=== PATIENT | female | born 1950 | race Caucasian/White ===

== ENCOUNTER 2018-05-27 09:34 | Outpatient (CLI) | payer OTHER ==
--- NOTE | 2018-05-30 18:09 | MMO ---
SCREENING MAMMOGRAPHY 05/27/18 COMPARISON: 12/07/16 HISTORY: Screening mammogram. FINDINGS: The patient's mammogram is interpreted with the assistance of computer aided detection. The breasts a re primarily fatty replaced. No dominant mass or architectural distortion. No concerning microcalcifi cation. Benign calcification noted on the right. IMPRESSION: BIRADS 2: Benign Finding(s) Routine annual screening mammography (for women over age 40). POS: [facility]
== END 2018-05-27 09:35 | disposition home or self-care (01) ==
LOC: SCSMAMMO 09:34 → EDBD 10:00
PROVIDERS: ATTEND Internal Medicine
DX: Z12.31 Encounter for screening mammogram for malignant neoplasm of breast (principal)
CPT/HCPCS: 77067

== ENCOUNTER 2018-06-10 10:43 | Outpatient (CLI) | payer OTHER ==
--- NOTE | 2018-06-10 11:57 | RAD ---
TWO VIEWS LEFT KNEE: History: Osteoarthritis of multiple joints. FINDINGS: Two views of the left knee shows moderate medial femorotibial joint space narrowing and osteophyte fo rmation consistent with osteoarthritis. There is no evidence of fracture or dislocation. IMPRESSION: Moderate left knee osteoarthritis. POS: [facility]
--- NOTE | 2018-06-10 11:58 | RAD ---
TWO VIEWS RIGHT KNEE: Comparison: None. History: Osteoarthritis of multiple joints. FINDINGS: Two views of the right knee shows moderate medial femorotibial joint space narrowing and osteophyte f ormation consistent with osteoarthritis. There is no evidence of fracture or dislocation. No knee eff usion is seen. IMPRESSION: Moderate right knee osteoarthritis. POS: [facility]
== END 2018-06-10 10:44 | disposition home or self-care (01) ==
LOC: BICRAD 10:43
PROVIDERS: ATTEND Internal Medicine
DX: M15.9 Polyosteoarthritis, unspecified (principal)

== ENCOUNTER 2018-12-25 08:59 | Outpatient (CLI) | payer OTHER, MEDICARE ==
--- NOTE | 2018-12-25 09:29 | RAD ---
THREE VIEWS OF THE LEFT WRIST: HISTORY: Left wrist pain. The patient fell 1 years ago. FINDINGS: Three views of the left wrist show no evidence of acute fracture or dislocation. There is remodeling of the distal radius which may represent a remote healed fracture. There is moderate to severe dege nerative change in the 1st CMC joint. IMPRESSION: 1. No evidence of acute osseous abnormality. 2. 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 POS: [facility]
== END 2018-12-25 09:00 | disposition home or self-care (01) ==
LOC: BICRAD 08:59
PROVIDERS: ATTEND Internal Medicine
DX: M25.532 Pain in left wrist (principal); M18.12 Unilateral primary osteoarthritis of first carpometacarpal joint, left hand

== ENCOUNTER 2019-12-31 08:37 | Outpatient (CLI) | payer MEDICARE, MEDICAID ==
--- NOTE | 2019-12-31 10:52 | MMO ---
Bilateral MAMMO Bilat Screen [facility]. CLINICAL HISTORY: Patient is 69 years old and is seen for screening. VIEWS: The views performed were: bilateral craniocaudal with tomosynthesis and bilateral mediolateral oblique with tomosynthesis. FILMS COMPARED: The present examination has been compared to prior imaging studies performed at [facility] on 05/27/2018, and at [facility] on 12/07/2016. This study has been interpreted with the assistance of computer-aided detection. MAMMOGRAM FINDINGS: The breasts are almost entirely fat. Benign calcifications are noted bilaterally. There are no suspicious masses, suspicious calcifications, or new areas of architectural distortion. IMPRESSION: THERE IS NO MAMMOGRAPHIC EVIDENCE OF MALIGNANCY. A ROUTINE FOLLOW-UP MAMMOGRAM IN 1 YEAR IS RECOMMENDED. THE RESULTS OF THIS EXAM WERE SENT TO THE PATIENT. ACR BI-RADS Category 2 - Benign finding MAMMOGRAPHY NOTE: 1. A negative mammogram report should not delay a biopsy if a dominant of clinically suspicious mass is present. 2. Approximately 10% to 15% of breast cancers are not detected by mammography. 3. Adenosis and dense breasts may obscure an underlying neoplasm. Reported by: ELVIRA CLARKE MD Electonically Signed: [id number]
--- NOTE | 2019-12-31 11:25 | BD ---
BONE DENSITOMETRY USING DEXA: Date: 12/31/2019 HISTORY: Postmenopausal screening for osteoporosis. FINDINGS: Lumbar Spine: BMD (g/cm2) L1 0.922 T-Score: -0.6 Z-Score: 1.1 L2 0.986 T-Score: -1.4 Z-Score: 1.6 L3 0.898 T-Score: -1.7 Z-Score: 0.4 L4 0.924 T-Score: -1.2 Z-Score: 0.9 L1-L4 0.931 T-Score: -1.1 Z-Score: 0.9 Femoral Neck: 0.705 T-Score: -1.3 Z-Score: 0.4 Total Femur: 1.000 T-Score: 0.5 Z-Score: 1.9 The 10 year fracture risk for a major osteoporotic fracture is 17% and for a hip fracture is 2%. IMPRESSION: Osteopenia. POS: [facility]
== END 2019-12-31 08:38 | disposition home or self-care (01) ==
LOC: BICMAMMO 08:37
PROVIDERS: ATTEND Family Medicine
DX: Z12.31 Encounter for screening mammogram for malignant neoplasm of breast (principal); Z13.820 Encounter for screening for osteoporosis; M85.89 Other specified disorders of bone density and structure, multiple sites
CPT/HCPCS: 77063; 77067; 77080

== ENCOUNTER 2020-07-05 06:51 | Outpatient (CLI) | payer MEDICARE, MEDICAID ==
--- NOTE | 2020-07-05 08:09 | RAD ---
4 views of the right knee: 07/05/2020 COMPARISON: None available HISTORY: Arthritis, right knee pain FINDINGS: There is moderate medial compartment narrowing with osteophyte formation of the medial femo ral condyle and medial tibial plateau. No knee joint effusion, displaced fracture, or evidence of dislocation is seen. IMPRESSION: Medial compartment degenerative joint disease.
--- NOTE | 2020-07-05 08:32 | ULT ---
Hepatic Doppler ultrasound: 07/05/2020 COMPARISON: None HISTORY: Elevated liver function tests TECHNIQUE: Multiplanar grayscale sonographic imaging of the abdomen provided. The hepatic and splenic vasculature is assessed with Doppler interrogation including color flow and spectral analysis FINDINGS: Imaged portions of the pancreas appear unremarkable. Imaged portions of the aorta and IVC appear grossly unremarkable. The left hepatic vein and left port al vein, the middle hepatic vein, and the right hepatic and right portal vein appear patent. The main portal vein is patent and demonstrates normal directional flow. Hepatic artery is patent and dem onstrates a normal arterial waveform. The patient is status post cholecystectomy. The common bile duct is normal in caliber measuring 6-7 m m. A solid hypoechoic lesion is suspected within the right lobe of the liver measuring 2.0 x 1.6 x 1.4 c m. The spleen is normal in size, measuring 12.7 cm. Splenic artery and splenic vein are patent and demonstrate appropriate waveforms and flow direction. IMPRESSION: Patent hepatic and splenic vasculature. Solid appearing lesion within the right lobe of the liver for which MRI of the abdomen with and witho ut contrast using hepatic mass protocol advised. CODE T
== END 2020-07-05 06:52 | disposition home or self-care (01) ==
LOC: BICULT 06:51
PROVIDERS: ATTEND Family Medicine
DX: M25.561 Pain in right knee (principal); R74.8 Abnormal levels of other serum enzymes; M17.11 Unilateral primary osteoarthritis, right knee
CPT/HCPCS: 76705

== ENCOUNTER 2020-08-31 07:34 | Outpatient (CLI) | payer MEDICARE, MEDICAID ==
--- NOTE | 2020-08-31 10:41 | MRI ---
MRI ABDOMEN WITH AND WITHOUT CONTRAST: INDICATION: Follow-up liver lesion. COMPARISON: Hepatic ultrasound dated 07/05/2020. FINDINGS: Likely corresponding to the isoechoic 2.0 x 1.6 cm mass lesion within the anterior liver is a T2 hype rintense 2.1 cm, T1 hypointense enhancing lesion within the the left hepatic lobe. The lesion demonstrates peripheral enhancement with progressive central fill-in on the delayed phase images. No additional focal hepatic lesion is evident. There is splenomegaly measuring up to 15.5 cm. There are very tiny renal cysts bilaterally within both kidneys. Adrenal glands and pancreas appear within normal limits. No free fluid is identified. No acute osseous abnormality is evident. The liver measures 21.7 cm in length. IMPRESSION: 1. Likely corresponding to the isoechoic lesion within the anterior liver on the comparison ultrasoun d is a T2 hyperintense, peripherally enhancing lesion with central fill-in. Findings may reflect a slightly atypical hemangioma or possibly a small FNH lesion. As a conservative measure would recommen d a follow-up MRI of the abdomen in 6 months to document stability. 2. Mild hepatosplenomegaly. 3. Small bilateral renal cysts. Transcribed Date/Time: 08/31/2020 12:21 PM
[2020-08-31] MEDS ORDERED: Magnevist 469MG/ML 20 ML VIAL ONE (11:49)
== END 2020-08-31 07:35 | disposition home or self-care (01) ==
LOC: BICMRI 07:34
PROVIDERS: ATTEND Family Medicine
DX: R93.2 Abnormal findings on diagnostic imaging of liver and biliary tract (principal); R16.2 Hepatomegaly with splenomegaly, not elsewhere classified; N28.1 Cyst of kidney, acquired
CPT/HCPCS: 74183; 82565; A9579

== ENCOUNTER 2020-11-10 08:34 | Outpatient (CLI) | payer MEDICARE, MEDICAID | END 2020-11-10 08:35 | disposition home or self-care (01) | LOC: BICRAD 08:34 | PROVIDERS: ATTEND Family Medicine | DX: M54.5 Low back pain (principal) | CPT/HCPCS: 72100 ==

== ENCOUNTER 2022-03-12 08:20 | Outpatient (CLI) | payer MEDICARE, MEDICAID | END 2022-03-12 08:21 | disposition home or self-care (01) | LOC: BICMAMMO 08:20 | PROVIDERS: ATTEND Family Medicine | DX: Z12.31 Encounter for screening mammogram for malignant neoplasm of breast (principal) | CPT/HCPCS: 77063; 77067 ==

== ENCOUNTER 2022-04-03 08:16 | Outpatient (CLI) | payer MEDICARE, MEDICAID | END 2022-04-03 08:17 | disposition home or self-care (01) | LOC: BICRAD 08:16 | PROVIDERS: ATTEND Family Medicine | DX: M25.562 Pain in left knee (principal); M17.12 Unilateral primary osteoarthritis, left knee ==

== ENCOUNTER 2022-06-16 10:20 | Emergency (ER) | payer OTHER ==
[2022-06-16] MEDS ORDERED: Acetaminophen 500 MG TAB ONE (11:40)
[2022-06-16] MEDS ORDERED: Ketorolac Tromethamine 30 MG/ML VIAL ONE (11:40)
== END 2022-06-16 11:56 | disposition home or self-care (01) ==
LOC: ERS 10:20
DX: K08.89 Other specified disorders of teeth and supporting structures (principal); E78.00 Pure hypercholesterolemia, unspecified; I10 Essential (primary) hypertension; Z87.891 Personal history of nicotine dependence
CPT/HCPCS: 96372; 99283; J1885

== ENCOUNTER 2025-02-27 13:00 | Emergency (ER) | payer MEDICAID, MEDICARE, OTHER ==
[~2025-02-27 13:00] MED LIST: Iopamidol-370 76% 500 ML MDV (1 ML CHARGE) ONE
[2025-02-27] MEDS ORDERED: Ondansetron PF 4 MG/2 ML Vial ONE (13:25)
[2025-02-27 14:28] LABS: ALT (SGPT) 36 U/L (Less than 34); AST (SGOT) 67 U/L (11-34); Albumin 3.3 g/dL (3.1-4.5); Alkaline Phosphatase 85 U/L (40-110); Anion Gap 17 mmol/L (10-20); BUN (Urea Nitrogen) 18 mg/dL (9.8-20.1); Bilirubin, Total 1.0 mg/dL (0.3-1.2); Calc. Creatinine Clearance 0 mL/min (70-130); Calcium 10.4 mg/dL (7.8-10.44); Carbon Dioxide 18 mmol/L (23-31); Chloride 108 mmol/L (98-107); Globulin 4.3 g/dL (2.4-3.5); Glucose 220 mg/dL (83-110); Lipase 24 U/L (8-78); Potassium 3.8 mmol/L (3.5-5.1); Sodium 139 mmol/L (136-145)
[2025-02-27 14:29] LABS: #Basophils 0.03 10x3/uL (0.0-0.2); #Eosinophils 0.08 10x3/uL (0.0-0.7); #Monocytes 0.19 10x3/uL (0.11-0.59); #Neutrophils 3.70 10x3/uL (1.40-6.50); %Basophils 0.7 % (0.0-1.0); %Eosinophils 1.8 % (0.0-10.0); %Lymphocytes 11.3 % (21.0-51.0); %Monocytes 4.2 % (0.0-10.0); %Neutrophils 81.6 % (42.0-75.0); Hematocrit 27.2 % (36.0-47.0); Hemoglobin 7.6 g/dL (12.0-16.0); Mean Corpuscular Hemoglobin 16.6 pg (27.0-31.0); Mean Corpuscular Volume 59.4 fL (78.0-98.0); Platelet Count 256 10x3/uL (130-400); Red Blood Cell (RBC) Count 4.58 mill/uL (4.20-5.40); Reflex for Review?? YES; White Blood Cell (WBC) Count 4.53 10x3/uL (4.8-10.8)
[2025-02-27 14:34] LABS: Anisocytosis MODERATE=16-30 cells HPF (0-5); Macrocytosis SLIGHT = 6-15 cells HPF (0-5); Microcytosis MARKED = >30 cells HPF (0-5); Ovalocytes MODERATE= 6-15 cells HPF (0-1); Platelet Adequacy Comment Platelets Normal; Polychromasia SLIGHT = 2-3 cells HPF (0-2); Schistocytes SLIGHT = 2-5 cells HPF (0-1)
[2025-02-27 14:59] LABS: Bacteria/HPF 1+ HPF (None Seen); CAUTI Indications for Culture < 2yrs of age; Glucose, Urine (Dipstick) Normal (Negative); Leukocyte Negative Leu/uL (Negative); Protein, Urine (Dipstick) Negative (Neg-Trace); RBC/HPF 21-50 HPF (0-3); Specific Gravity, Urine 1.019 (1.002-1.036); WBC/HPF 0-3 HPF (0-3)
[2025-02-27 15:01] LABS: Urine Culture Reflex Yes Yes
== END 2025-02-27 16:05 | disposition home or self-care (01) ==
LOC: ERS 13:00
DX: N13.2 Hydronephrosis with renal and ureteral calculous obstruction (principal); I10 Essential (primary) hypertension; E11.9 Type 2 diabetes mellitus without complications; E78.00 Pure hypercholesterolemia, unspecified; Z55.6 Problems related to health literacy; Z87.891 Personal history of nicotine dependence; Z79.899 Other long term (current) drug therapy; Z79.84 Long term (current) use of oral hypoglycemic drugs
CPT/HCPCS: 74177; 80053; 81001; 83690; 85025; 87086; 93005; J2270; J2405; 85060; 96361; 96374; 96375; Q9967